=== PATIENT | female | born 1950 | race Native Hawaiian/Other Pacific Islander ===

== ENCOUNTER 2016-11-12 18:49 | Emergency (ER) | payer OTHER ==
[~2016-11-12] VITALS: Ht 157.5 cm; Wt 57.2 kg
[2016-11-12 19:09] VITALS: TEMP 97.6
[2016-11-12 20:07] LABS: PLATELET COUNT 267 K/uL (152-353)
[2016-11-12 20:15] LABS: POTASSIUM 3.8 mmol/L (3.6-5.2)
[2016-11-12 21:30] VITALS: BP 134/80
== END 2016-11-12 21:40 | disposition home or self-care (01) ==
LOC: ED 18:49
DX: R82.4 Acetonuria (principal); R00.0 Tachycardia, unspecified
CPT/HCPCS: 36415; 80053; 80307; 81000; 82550; 84484; 85027; 93005; 96374; 99284; G0479; J1885

== ENCOUNTER 2018-08-20 13:39 | Outpatient (CLI) | payer OTHER | END 2018-08-20 23:08 | disposition home or self-care (01) | LOC: RAD 13:39 | DX: R13.19 Other dysphagia (principal) ==